=== PATIENT | male | born 1940 | race Caucasian/White ===

== ENCOUNTER → 2017-08-01 | Outpatient (CLI) | payer MEDICARE ==
[~2017-08-01] MED LIST: ALLO300T; ASPI-496; CELE200C; CLOP75TA52; METF500T4; OXYB15TA4; SIMV80TA
== END | disposition home or self-care (01) ==
LOC: CVU 08:07
PROVIDERS: ATTEND Internal Medicine Cardiovascular Disease
DX: I08.0 Rheumatic disorders of both mitral and aortic valves (principal); I10 Essential (primary) hypertension; Z86.73 Personal history of transient ischemic attack (TIA), and cerebral infarction without residual deficits
CPT/HCPCS: 93306

== ENCOUNTER 2017-10-11 12:51 | Emergency (ER) | payer MEDICARE ==
[~2017-10-11] VITALS: Ht 177.8 cm; Wt 111.4 kg
[~2017-10-11 12:51] MED LIST changes: -ALLO300T; +ALLO300T PO; -ASPI-496; +ASPI-496 PO; -CELE200C; +CELE200C PO; +HYDR25TA6 PO; +LOVA40TA2 PO; -METF500T4; +METF500T4 PO; +MOEX15TA2 PO; +MULT-717 PO; -OXYB15TA4; +OXYB15TA4 PO
[2017-10-11] MEDS ORDERED: SODIUM CHLORIDE FLUSH 10ML SYR IVF ONE (13:30)
[2017-10-11 14:18] LABS: BASOPHILS # (AUTO) 0.04 x10^3/uL (0-0.1); BASOPHILS % (AUTO) 0 % (0-1); EOSINOPHILS # (AUTO) 0.25 x10^3/uL (0-0.4); EOSINOPHILS % (AUTO) 2 % (1-7); LYMPHOCYTES # (AUTO) 2.31 x10^3/uL (1-3.4); LYMPHOCYTES % (AUTO) 20 % (22-44); MD NO; MEAN CORPUSCULAR HEMOGLOBIN 29.7 pg (27.5-34.5); MEAN CORPUSCULAR HGB CONC 33.1 g/dL (33.2-36.2); MEAN CORPUSCULAR VOLUME 89.9 fL (81-97); MEAN PLATELET VOLUME 8.2 fL (7.4-10.4); MONOCYTES # (AUTO) 0.83 x10^3/uL (0.2-0.8); MONOCYTES % (AUTO) 7 % (2-9); NEUTROPHILS # (AUTO) 7.89 x10^3/uL (1.8-6.8); NEUTROPHILS % (AUTO) 70 % (42-75); PLATELET COUNT 180 x10^3/uL (130-400); RED BLOOD COUNT 5.74 x10^6/uL (4.38-5.82)
[2017-10-11 14:24] LABS: ALBUMIN 3.4 g/dL (3.4-5.0); ANION GAP 8 mmol/L (5-15); CALCIUM 8.8 mg/dL (8.5-10.1); CHLORIDE 107 mmol/L (98-107); CREATININE 1.43 mg/dL (0.7-1.3)
[2017-10-11 14:35] VITALS: BP 147/64
[2017-10-11] MEDS ORDERED: METOPROLOL TARTRATE 25 MG TABLET PO ONE (15:00)
[2017-10-11] MEDS ORDERED: METOPROLOL TARTRATE 25 MG TABLET ONE (15:23)
== END 2017-10-11 15:37 | disposition home or self-care (01) ==
LOC: ED 14:23
DX: I47.1 Supraventricular tachycardia (principal); I10 Essential (primary) hypertension; E11.9 Type 2 diabetes mellitus without complications; E78.00 Pure hypercholesterolemia, unspecified; M10.9 Gout, unspecified; Z87.891 Personal history of nicotine dependence; Z86.73 Personal history of transient ischemic attack (TIA), and cerebral infarction without residual deficits
CPT/HCPCS: 36415; 80048; 82040; 83605; 83735; 85025; 99284

== ENCOUNTER 2017-11-07 06:11 | Day surgery (SDC) | payer MEDICARE ==
[2017-11-06 10:36] VITALS: BP 136/73
[2017-11-06 11:06] LABS: BASOPHILS # (AUTO) 0.06 x10^3/uL (0-0.1); BASOPHILS % (AUTO) 1 % (0-1); EOSINOPHILS # (AUTO) 0.21 x10^3/uL (0-0.4); EOSINOPHILS % (AUTO) 3 % (1-7); LYMPHOCYTES # (AUTO) 2.23 x10^3/uL (1-3.4); LYMPHOCYTES % (AUTO) 28 % (22-44); MD NO; MEAN PLATELET VOLUME 7.5 fL (7.4-10.4); MONOCYTES # (AUTO) 0.67 x10^3/uL (0.2-0.8); MONOCYTES % (AUTO) 8 % (2-9); NEUTROPHILS # (AUTO) 4.79 x10^3/uL (1.8-6.8); NEUTROPHILS % (AUTO) 60 % (42-75); PLATELET COUNT 196 x10^3/uL (130-400); RED BLOOD COUNT 5.41 x10^6/uL (4.38-5.82); RED CELL DISTRIBUTION WIDTH 16.5 % (9.4-14.8)
[2017-11-06 11:17] LABS: INTERNATIONAL NORMALIZED RATIO 1.01 (0.93-1.1); PROTHROMBIN TIME 10.5 Seconds (9.6-11.5)
[2017-11-06 11:19] LABS: ALANINE AMINOTRANSFERASE 20 U/L (12-78); ALBUMIN 3.9 g/dL (3.4-5.0); ANION GAP 6 mmol/L (5-15); CALCIUM 8.7 mg/dL (8.5-10.1); CHLORIDE 110 mmol/L (98-107); CREATININE 1.45 mg/dL (0.7-1.3)
[2017-11-06 11:22] LABS: ALKALINE PHOSPHATASE 68 U/L (45-117); BILIRUBIN,TOTAL 0.9 mg/dL (0.2-1.0); TOTAL PROTEIN 7.3 g/dL (6.4-8.2)
[~2017-11-07] VITALS: Ht 175.3 cm; Wt 109.1 kg
[2017-11-07] MEDS ORDERED: SODIUM CHLORIDE 0.9% 1,000 ML IV SCH (06:24)
[2017-11-07] MEDS ORDERED: ADENOSINE 6 MG/2 ML ONE (07:57)
[2017-11-07] MEDS ORDERED: MIDAZOLAM 1 MG/ML, 5ML ONE (07:57)
[2017-11-07] MEDS ORDERED: FENTANYL PF 100 MCG/2ML ONE (07:57)
[2017-11-07] MEDS ORDERED: LIDOCAINE/PF 1%, 30ML ONE (07:57)
[2017-11-07] MEDS ORDERED: ISOPROTERENOL 0.2MG/ML, 5ML ONE (07:57)
[2017-11-07] MEDS ORDERED: ACETAMINOPHEN 325 MG TABLET PO PRN (10:30)
[2017-11-07] MEDS ORDERED: TEMPLATE NON-FORMULARY MED. (Multivits-Min/Fa/Lycopene/Lut** (Centrum Silver Tablet**) 1 T PO SCH (10:30)
[2017-11-07] MEDS ORDERED: metFORMIN 500 MG TABLET PO SCH (21:00)
[2017-11-07] MEDS ORDERED: LOVASTATIN 40 MG TABLET PO SCH (21:00)
[2017-11-08] MEDS ORDERED: ASPIRIN 81 MG TABLET EC PO SCH (09:00)
[2017-11-08] MEDS ORDERED: HYDROCHLOROTHIAZIDE 25 MG TABLET PO SCH (09:00)
[2017-11-08] MEDS ORDERED: OXYBUTYNIN CHLORIDE 15 MG PO SCH (09:00)
[2017-11-08] MEDS ORDERED: MOEXIPRIL HCL 15 MG PO SCH (09:00)
[2017-11-08] MEDS ORDERED: ALLOPURINOL 300 MG TABLET PO SCH (09:00)
== END 2017-11-07 15:08 | disposition home or self-care (01) ==
LOC: CACL 06:11
PROVIDERS: ATTEND Internal Medicine Cardiovascular Disease
DX: I47.1 Supraventricular tachycardia (principal); E78.5 Hyperlipidemia, unspecified; I10 Essential (primary) hypertension; M10.9 Gout, unspecified; E11.9 Type 2 diabetes mellitus without complications; Z79.82 Long term (current) use of aspirin; Z88.0 Allergy status to penicillin; Z88.8 Allergy status to other drugs, medicaments and biological substances
CPT/HCPCS: 36415; 80053; 85025; 85610; 85730; 93613; 93621; 93623; 93653; 99156; 99157; C1730; C1766; C1894; C2630; J2250; J3010; J3490; J0153

== ENCOUNTER → 2018-07-23 | Outpatient (CLI) | payer MEDICARE ==
[~2018-07-23] MED LIST changes: +METF500T17 PO; -METF500T4 PO
== END | disposition home or self-care (01) ==
LOC: CVU 14:40
PROVIDERS: ATTEND Internal Medicine Cardiovascular Disease
DX: I08.0 Rheumatic disorders of both mitral and aortic valves (principal)
CPT/HCPCS: 93306

== ENCOUNTER 2019-01-19 14:16 | Inpatient (IN) | payer MEDICARE ==
[~2019-01-19] VITALS: Ht 177.8 cm; Wt 112.0 kg
[2019-01-21 12:05] VITALS: BP 121/79
== END 2019-01-21 16:15 | disposition home or self-care (01) | DRG 73 ==
LOC: ED 15:25 → 4WST 15:32 → ED 16:02
PROVIDERS: ADMIT Internal Medicine; ATTEND Internal Medicine
DX: G90.8 Other disorders of autonomic nervous system (principal); N17.0 Acute kidney failure with tubular necrosis; E87.2 Acidosis; E87.1 Hypo-osmolality and hyponatremia; I95.9 Hypotension, unspecified; I49.3 Ventricular premature depolarization; R00.0 Tachycardia, unspecified; E11.22 Type 2 diabetes mellitus with diabetic chronic kidney disease; I13.10 Hypertensive heart and chronic kidney disease without heart failure, with stage 1 through stage 4 chronic kidney disease, or unspecified chronic kidney disease; E78.5 Hyperlipidemia, unspecified; M10.9 Gout, unspecified; E86.0 Dehydration; M43.6 Torticollis; N18.3 Chronic kidney disease, stage 3 (moderate); W18.39XA Other fall on same level, initial encounter; Y93.89 Activity, other specified; Z86.73 Personal history of transient ischemic attack (TIA), and cerebral infarction without residual deficits; Y92.89 Other specified places as the place of occurrence of the external cause; Y99.8 Other external cause status; Z79.4 Long term (current) use of insulin; Z79.82 Long term (current) use of aspirin; Z80.1 Family history of malignant neoplasm of trachea, bronchus and lung; Z82.5 Family history of asthma and other chronic lower respiratory diseases; Z87.891 Personal history of nicotine dependence
CPT/HCPCS: 36415; 70450; 72125; 76770; 80048; 80053; 81003; 82306; 82570; 82962; 83735; 83970; 84100; 84300; 84443; 84484; 85025; 90471; 90715; 93005; 93306; 96360; 99291; G0378; J1644; J7030; J7040